=== PATIENT | male | born 1930 | race Caucasian/White ===

== ENCOUNTER 2017-06-07 06:42 | Observation (INO) | payer OTHER ==
[~2017-06-07] VITALS: Ht 188 cm; Wt 101.0 kg
[~2017-06-07 06:42] MED LIST: ASPIR 8181 M1 PO; ASPIR-LOW81 MG PO; CALCIUM 600 +1 EACH PO; CELECOXIB200 MG PO; CHILD ASPIRIN81 M1 PO; COLACE50 MG PO; COUMADIN PO; COUMADIN,JANTOVE2 MG PO; COUMADIN1 MG; COUMADIN2 MG PO; COUMADIN6 MG PO; CRESTOR5 MG PO; Coumadin,Jantoven PO; Crestor PO; DIOVAN320 MG PO; DOCUSATE SODIU100 MG PO; DOXAZOSIN MESYLA8 MG PO; FUROSEMIDE40 MG PO; HYDROCHLOROTH12.5 M3 PO; HYDROCHLOROTHIA25 MG PO; IPRATR-ALBUTEROL3 ML IH; IRON325 M1 PO; JANTOVEN6 MG PO; LACTULOSE10 GM/151 PO; LOPRESSOR25 MG PO; LOVENOX40 MG/0.4 SC; MILK OF MAGNESI10 ML PO; MIRALAX17 GM PO; Miralax, Glycolax PO; NIASPAN500 MG PO; NORVASC5 MG PO; Norvasc PO; PREDNISONE20 MG PO; PRILOSEC10 MG PO; PRILOSEC20 MG PO; SENNA-TIME S T1 EACH PO; SENOKOT S,PE1 TABLET PO; SODIUM CHLORIDE1 G1 PO; Senokot S,Pericolace PO; THERAGRAN1 TABLET PO; TOPROL XL25 MG PO; TRAMADOL HCL50 MG PO; TYLENOL EXTRA500 MG PO; TYLENOL REGULA325 MG PO; Theragran PO; Tylenol Regular Stre PO; VISKEN PO; VISKEN10 MG PO; WARFARIN SODIUM6 MG PO; predniSONE PO
[2017-06-07 09:32] LABS: BASOPHIL (%) 0.4 % (0-1); BASOPHIL COUNT 0.1 K/uL (0-0.1); EOSINOPHIL (%) 0.7 % (0-5); EOSINOPHIL COUNT 0.1 K/uL (0-0.3); HEMATOCRIT 44.2 % (38.0-50.0); HEMOGLOBIN 14.7 G/DL (12.5-16.6); IMMATURE GRANULOCYTE (%) 0.7 % (0.0-0.7); LYMPHOCYTE (%) 4.9 % (15-42); LYMPHOCYTE COUNT 0.7 K/uL (1.0-2.8); MCH 29.6 PG (29.0-34.0); MCHC 33.3 G/DL (30.0-36.0); MCV 89.1 FL (86-99); MONOCYTE (%) 10.4 % (3-12); MONOCYTE COUNT 1.4 K/uL (0-0.8); NEUTROPHIL (%) 82.9 % (45-76); NEUTROPHIL COUNT 11.1 K/uL (1.8-6.4); PLATELET COUNT 177 K/uL (156-360); RBC DIS.WIDTH-CV 14.5 % (11.8-14.6); RBC DIS.WIDTH-SD 46.7 % (39-53); RED BLOOD COUNT 4.96 M/uL (4.00-5.50); WHITE BLOOD COUNT 13.3 K/uL (4.1-10.2)
[2017-06-07 09:45] LABS: CHLORIDE 104 mEq/L (99-109); POTASSIUM 4.9 mEq/L (3.7-5.4); SODIUM 136 mEq/L (136-147)
[2017-06-07 09:47] LABS: GLUCOSE 127 mg/dL (70-99)
[2017-06-07 09:51] LABS: CREATININE 1.2 mg/dL (0.6-1.3); GFR ESTIMATE (CALCULATED) > 59 mL/min/ (58.99-99999)
[2017-06-07 09:52] LABS: UREA NITROGEN (BUN) 23 mg/dL (9-23)
[2017-06-07] MEDS ORDERED: ADULT ASPIRIN R81 MG PO (11:44)
[2017-06-07] MEDS ORDERED: CRESTOR5 MG PO (11:45)
[2017-06-07] MEDS ORDERED: TYLENOL EXTRA500 MG PO (11:45)
[2017-06-07] MEDS ORDERED: ALDACTONE50 MG PO (11:45)
[2017-06-07 14:33] VITALS: BP 114/69
[2017-06-07 16:30] VITALS: BP 129/70
[2017-06-07 19:40] VITALS: BP 139/67
[2017-06-07 23:32] VITALS: BP 118/66
[2017-06-08 03:33] VITALS: BP 105/58
[2017-06-08 05:35] LABS: HEMATOCRIT 39.6 % (38.0-50.0); MCH 29.1 PG (29.0-34.0); MCHC 32.8 G/DL (30.0-36.0); MCV 88.8 FL (86-99); PLATELET COUNT 161 K/uL (156-360); RBC DIS.WIDTH-CV 14.6 % (11.8-14.6); RBC DIS.WIDTH-SD 46.9 % (39-53); RED BLOOD COUNT 4.46 M/uL (4.00-5.50)
[2017-06-08 05:49] LABS: CHLORIDE 103 MEQ/L (99-109); CREATININE 1.1 MG/DL (0.6-1.3); GFR ESTIMATE (CALCULATED) > 59 mL/min/ (58.99-99999); GLUCOSE 114 mg/dL (70-99); POTASSIUM 4.3 MEQ/L (3.7-5.4); SODIUM 132 MEQ/L (136-147); UREA NITROGEN (BUN) 28 mg/dL (9-23)
[2017-06-08 07:33] VITALS: BP 118/68
[2017-06-08 11:25] VITALS: BP 121/62
[2017-06-08 14:01] LABS: APPEARANCE CLEAR ((CLEAR)); BILIRUBIN NEGATIVE; BLOOD NEGATIVE; COLOR YELLOW ((YELLOW)); GLUCOSE (STRIP) NEGATIVE; KETONES NEGATIVE; LEUKOCYTES NEGATIVE; NITRITE NEGATIVE; PROTEIN (STRIP) NEGATIVE; SPECIFIC GRAVITY 1.025 (1.000-1.030); UCUL ADDED? NO; UROBILINOGEN 0.2 MG/DL (0.2-1.0)
[2017-06-08 15:04] LABS: C DIFF TOXIN NEGATIVE (NEGATIVE)
[2017-06-08] MEDS ORDERED: LOVENOX40 MG/0.4 SC (15:42)
[2017-06-08 17:03] VITALS: BP 116/57
== END 2017-06-08 17:51 ==
LOC: EME → EDBD 06:42 → EDOF 12:32 → 3EAST 12:32 → EDOF 12:32 → ENRESERV 12:48 → CANRESERV 12:48 → ENRESERV 12:49 → EDOF 12:56 → ENRESERV 13:19 → 3EAST 13:55
PROVIDERS: Emergency Medicine; Hospitalist; Internal Medicine
DX: S72.111A Displaced fracture of greater trochanter of right femur, initial encounter for closed fracture (principal); Z96.643 Presence of artificial hip joint, bilateral; R09.02 Hypoxemia; I48.2 Chronic atrial fibrillation; I10 Essential (primary) hypertension; E78.5 Hyperlipidemia, unspecified; M19.90 Unspecified osteoarthritis, unspecified site; W18.39XA Other fall on same level, initial encounter; Z60.2 Problems related to living alone; E11.9 Type 2 diabetes mellitus without complications; K21.9 Gastro-esophageal reflux disease without esophagitis; N40.0 Benign prostatic hyperplasia without lower urinary tract symptoms; Z85.828 Personal history of other malignant neoplasm of skin; Z87.891 Personal history of nicotine dependence; Z88.0 Allergy status to penicillin
CPT/HCPCS: 73502; 80048; 81003; 85025; 85027; 87493; 93005; 97530 GO; 99281; 99285; G0378; G8978 CL; G8979 GP CI; G8987 GO CL; G8988 GO CJ; J1650; J1885; J7030

== ENCOUNTER 2017-06-08 10:16 | Inpatient (IN) | payer OTHER ==
[~2017-06-08] VITALS: Ht 185.4 cm; Wt 101.3 kg
[~2017-06-08 10:16] MED LIST changes: +ADULT ASPIRIN R81 MG PO; +ALDACTONE50 MG PO
[2017-06-08] MEDS ORDERED: LOVENOX40 MG/0.4 SC (15:42)
[2017-06-08 18:51] VITALS: BP 131/66
[2017-06-08 21:48] VITALS: BP 141/68
[2017-06-09 06:52] VITALS: BP 122/73
[2017-06-09 09:18] LABS: HEMATOCRIT 39.2 % (38.0-50.0); MCH 29.5 PG (29.0-34.0); MCHC 33.2 G/DL (30.0-36.0); MCV 89.1 FL (86-99); PLATELET COUNT 145 K/uL (156-360); RBC DIS.WIDTH-CV 14.6 % (11.8-14.6); RBC DIS.WIDTH-SD 47.8 % (39-53); WHITE BLOOD COUNT 9.1 K/uL (4.1-10.2)
[2017-06-09 09:40] LABS: ALBUMIN 3.3 G/DL (3.2-4.8); ALKALINE PHOSPHATASE 55 IU/L (3-129); ALT (GPT) 8 IU/L (3-49); AST (GOT) 14 IU/L (2-34); CHLORIDE 100 MEQ/L (99-109); GFR ESTIMATE (CALCULATED) > 59 mL/min/ (58.99-99999); GLUCOSE 165 mg/dL (70-99); POTASSIUM 4.1 MEQ/L (3.7-5.4); SODIUM 129 MEQ/L (136-147); TOTAL BILIRUBIN 1.5 MG/DL (0.0-1.0); TOTAL PROTEIN 5.6 G/DL (6.4-8.3); UREA NITROGEN (BUN) 23 mg/dL (9-23)
[2017-06-09 15:04] VITALS: BP 98/56
[2017-06-10 00:41] LABS: APPEARANCE CLEAR ((CLEAR)); BILIRUBIN NEGATIVE; BLOOD NEGATIVE; COLOR YELLOW ((YELLOW)); GLUCOSE (STRIP) NEGATIVE; KETONES NEGATIVE; LEUKOCYTES LARGE; NITRITE NEGATIVE; PROTEIN (STRIP) NEGATIVE; UROBILINOGEN 0.2 MG/DL (0.2-1.0)
[2017-06-10 00:45] LABS: BACTERIA NONE SEEN /HPF; EPITHELIAL CELLS RARE /HPF; MUCUS TRACE /LPF; RED BLOOD CELLS 0-5 /HPF (0-5)
[2017-06-10 05:36] LABS: BASOPHIL (%) 0.5 % (0-1); EOSINOPHIL (%) 4.5 % (0-5); EOSINOPHIL COUNT 0.4 K/uL (0-0.3); HEMATOCRIT 37.2 % (38.0-50.0); HEMOGLOBIN 12.4 G/DL (12.5-16.6); IMMATURE GRANULOCYTE (%) 1.2 % (0.0-0.7); LYMPHOCYTE (%) 13.1 % (15-42); LYMPHOCYTE COUNT 1.2 K/uL (1.0-2.8); MCH 29.6 PG (29.0-34.0); MCHC 33.3 G/DL (30.0-36.0); MCV 88.8 FL (86-99); MONOCYTE (%) 12.6 % (3-12); MONOCYTE COUNT 1.1 K/uL (0-0.8); NEUTROPHIL (%) 68.1 % (45-76); PLATELET COUNT 153 K/uL (156-360); RBC DIS.WIDTH-CV 14.6 % (11.8-14.6); RED BLOOD COUNT 4.19 M/uL (4.00-5.50); WHITE BLOOD COUNT 8.9 K/uL (4.1-10.2)
[2017-06-10 05:43] VITALS: BP 130/74
[2017-06-10 07:14] LABS: CHLORIDE 104 MEQ/L (99-109); CREATININE 0.9 MG/DL (0.6-1.3); GFR ESTIMATE (CALCULATED) > 59 mL/min/ (58.99-99999); MAGNESIUM 1.7 mg/dl (1.3-2.7); PHOSPHORUS 2.3 mg/dL (2.5-4.9); SODIUM 133 MEQ/L (136-147); UREA NITROGEN (BUN) 22 mg/dL (9-23)
[2017-06-10 07:24] LABS: GLUCOSE 101 mg/dL (70-99)
[2017-06-10 09:45] LABS: THYROTROPIN (TSH) 1.7 MIU/L (0.4-5.5); URIC ACID 5.6 mg/dL (3.1-9.2)
[2017-06-10 15:32] VITALS: BP 105/57
[2017-06-11 06:31] VITALS: BP 110/65
[2017-06-11 14:55] VITALS: BP 114/56
[2017-06-12 06:09] VITALS: BP 125/74
[2017-06-12 15:58] VITALS: BP 121/66
[2017-06-13 06:09] VITALS: BP 119/62
[2017-06-13 06:50] LABS: CHLORIDE 102 MEQ/L (99-109); CREATININE 0.9 MG/DL (0.6-1.3); GFR ESTIMATE (CALCULATED) > 59 mL/min/ (58.99-99999); GLUCOSE 112 mg/dL (70-99); POTASSIUM 4.3 MEQ/L (3.7-5.4); SODIUM 135 MEQ/L (136-147); UREA NITROGEN (BUN) 19 mg/dL (9-23)
[2017-06-13 15:50] VITALS: BP 119/56
[2017-06-14 06:26] VITALS: BP 129/68
[2017-06-14 15:47] VITALS: BP 127/62
[2017-06-15 05:45] VITALS: BP 117/59
[2017-06-15 16:07] VITALS: BP 122/58
[2017-06-16 06:51] VITALS: BP 114/55
[2017-06-16] MEDS ORDERED: TYLENOL REGULA325 MG PO (10:24)
[2017-06-16] MEDS ORDERED: SENNA PLUS TAB1 EACH PO (10:24)
[2017-06-16] MEDS ORDERED: THERAGRAN1 TABLET PO (10:25)
[2017-06-16] MEDS ORDERED: POLYETHYLENE GL17 GM PO (10:25)
== END 2017-06-16 13:38 | DRG 560 ==
LOC: 3WEST 10:16
PROVIDERS: Internal Medicine Nephrology; Physical Medicine & Rehabilitation Pain Medicine
PROC: F07M0ZZ Range of Motion and Joint Mobility Treatment of Musculoskeletal System - Whole Body (ICD-10-PCS; principal; 2017-06-08)
DX: S72.111D Displaced fracture of greater trochanter of right femur, subsequent encounter for closed fracture with routine healing (principal); R53.1 Weakness; M97.01XD Periprosthetic fracture around internal prosthetic right hip joint, subsequent encounter; E87.1 Hypo-osmolality and hyponatremia; M16.0 Bilateral primary osteoarthritis of hip; K59.00 Constipation, unspecified; E78.5 Hyperlipidemia, unspecified; I11.9 Hypertensive heart disease without heart failure; Z96.643 Presence of artificial hip joint, bilateral; I48.91 Unspecified atrial fibrillation; K21.9 Gastro-esophageal reflux disease without esophagitis; T50.0X5A Adverse effect of mineralocorticoids and their antagonists, initial encounter; D72.829 Elevated white blood cell count, unspecified; Z60.2 Problems related to living alone; W08.XXXD Fall from other furniture, subsequent encounter; Z88.0 Allergy status to penicillin; Z82.3 Family history of stroke; Z80.8 Family history of malignant neoplasm of other organs or systems; Z83.3 Family history of diabetes mellitus; Z79.82 Long term (current) use of aspirin
CPT/HCPCS: 71045; 80048; 80053; 81003; 82533 91; 83735; 83935; 84100; 84300; 84443; 84550; 85025; 85027; 97110 GO; 97530 GP; J1650; J7030